=== PATIENT | female | born 1970 | race Caucasian/White ===

== ENCOUNTER → 2016-12-28 | Outpatient (REF) ==
[~2016-12-28] MED LIST: /CELE20CA OR; /ESOM40CA OR; /PRAV20TA OR; ASPI81TA45 OR; CETI10TA OR; CLAR5CHW OR; COZAR PO; DYAZ37.5 PO; FURO20TA2 OR; KLOR10TA OR; PLAV75TA2 OR; SOMA350T OR; bystolic PO
--- NOTE | 2016-12-28 13:53 | REP ---
Lumbar spine three views: There are no comparisons. Vertebral body heights are normal. There is disc space narrowing compatible with degenerative disc disease at L4-5 and L5 S1. 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 There is mild grade 1 anterolisthesis of L4, likely degenerative. No spondylolysis is identified on these three views. There are surgical clips in the abdominal right upper quadrant. There is a surgical clip in the pelvis on the left. There is mild bilateral sacroiliac osteoarthritis. Impression: Degenerative disc disease as described. Grade 1 degenerative anterolisthesis of L4. L5, limbus vertebra as a congenital variant. Sacroiliac osteoarthritis. Surgical clip in the pelvis on the left. Abdominal right upper quadrant surgical clips. Signed by Khoi Bueno MD 12/28/2016 01:44 P
== END ==
LOC: M SMT 13:03
PROVIDERS: ATTEND Internal Medicine
DX: M54.5 Low back pain (principal)